=== PATIENT | female | born 1955 ===

== ENCOUNTER 2021-06-26 09:01 | Day surgery (SDC) | payer OTHER | END 2021-06-26 14:10 | disposition home or self-care (01) | LOC: AMB-ENDOS 09:01 | PROVIDERS: ATTEND Surgery | DX: K57.32 Diverticulitis of large intestine without perforation or abscess without bleeding (principal); K64.8 Other hemorrhoids; Z20.822 Contact with and (suspected) exposure to COVID-19 ==

== ENCOUNTER 2022-04-09 11:00 | Inpatient (IN) | payer OTHER ==
[~2022-04-09] VITALS: Ht 157.5 cm; Wt 75.3 kg
[2022-04-09] MEDS ORDERED: HUMIRA PEN40 MG/0.2 SQ (13:48)
[2022-04-09] MEDS ORDERED: COZAAR50 MG PO (13:48)
[2022-04-09] MEDS ORDERED: KAPSPARGO SPRIN50 MG PO (13:49)
[2022-04-09] MEDS ORDERED: LEVOTHYROXINE25 MCG PO (13:49)
[2022-04-18] MEDS ORDERED: INTESTINEX680 M1 PO (12:05)
[2022-04-18] MEDS ORDERED: ULTRACET PO (12:05)
== END 2022-04-18 12:48 | disposition home or self-care (01) | DRG 331 ==
LOC: SURH 04-15 05:51 → O/R 04-15 05:51 → SURH 04-15 07:00
PROVIDERS: ADMIT Surgery; ATTEND Surgery
PROC: 0DBP4ZZ Excision of Rectum, Percutaneous Endoscopic Approach (ICD-10-PCS; 2022-04-15)
PROC: 0DJD8ZZ Inspection of Lower Intestinal Tract, Via Natural or Artificial Opening Endoscopic (ICD-10-PCS; 2022-04-15)
PROC: 0DTN4ZZ Resection of Sigmoid Colon, Percutaneous Endoscopic Approach (ICD-10-PCS; principal; 2022-04-15 07:00)
DX: K57.32 Diverticulitis of large intestine without perforation or abscess without bleeding (principal); R19.4 Change in bowel habit; R10.32 Left lower quadrant pain; N99.4 Postprocedural pelvic peritoneal adhesions; I10 Essential (primary) hypertension; E03.9 Hypothyroidism, unspecified